=== PATIENT | female | born 1970 | race Two or more races ===

== ENCOUNTER 2023-01-31 06:33 | Emergency (ER) | payer MEDICAID ==
[~2023-01-31] VITALS: Ht 165.1 cm; Wt 93.0 kg
[2023-01-31 07:38] VITALS: BP 123/66; PULSE 86; RESP 18; O2SAT 96
[2023-01-31] MEDS ORDERED: ACETAMINOPHEN 500 MG TAB PO ONE (07:45)
[2023-01-31] MEDS ORDERED: ACET-1080 PO (08:11)
== END 2023-01-31 08:37 | disposition home or self-care (01) ==
LOC: ER 06:33
DX: S90.32XA Contusion of left foot, initial encounter (principal); Z79.899 Other long term (current) drug therapy; Z88.0 Allergy status to penicillin; W07.XXXA Fall from chair, initial encounter; Y93.89 Activity, other specified; Y92.89 Other specified places as the place of occurrence of the external cause; Y99.8 Other external cause status
CPT/HCPCS: 73630

== ENCOUNTER 2023-03-30 12:57 | Emergency (ER) | payer MEDICAID ==
[~2023-03-30] VITALS: Ht 165.1 cm; Wt 96.6 kg
[~2023-03-30 12:57] MED LIST: ACET-1080 PO
[2023-03-30 15:05] LABS: Urine Bacteria NONE SEEN /hpf (None Seen); Urine Blood Negative /uL (Negative); Urine Clarity Clear (Clear); Urine Color Colorless (Yellow); Urine Protein, UAD Negative (Negative); Urine Specific Gravity 1.004 (1.001-1.035); Urine Urobilinogen Normal (Negative); Urine WBC 22 /hpf (0 - 5); Urine pH 5.5 (5.0-8.0)
[2023-03-30] MEDS ORDERED: ACET500T58 PO (18:40)
[2023-03-30] MEDS ORDERED: SULF800T23 PO (18:40)
[2023-03-30] MEDS ORDERED: KETOROLAC TROMETH 60MG/2ML VIAL IM ONE (18:45)
[2023-03-30] MEDS ORDERED: cefTRIAXone SOD 1,000 MG VL IM ONE (18:45)
[2023-03-30] MEDS ORDERED: LIDOCAINE 1% HCL (LOCAL ANESTH.) INJ 20ML MDV IJ ONE (19:00)
[2023-03-30 19:01] VITALS: BP 124/81; PULSE 87; RESP 18; TEMP 97.9; O2SAT 98
== END 2023-03-30 19:09 | disposition home or self-care (01) ==
LOC: ER 12:57
DX: N39.0 Urinary tract infection, site not specified (principal); Z88.0 Allergy status to penicillin
CPT/HCPCS: 81001; 96372; 99284; J0696; J1885; J2001